=== PATIENT | female | born 1960 | race Hispanic/Latino ===

== ENCOUNTER 2021-04-14 07:10 | Inpatient (IN) | payer BC, OTHER ==
[~2021-04-14] VITALS: Ht 167.6 cm; Wt 100.9 kg
[2021-04-14 07:48] LABS: BASOPHILS % (AUTO) 0.6 % (0.0-5.0); EOSINOPHILS % (AUTO) 0.2 % (0.0-8.0); HEMATOCRIT 35.6 % (36-48); LYMPHOCYTES % (AUTO) 17.9 % (21.0-51.0); MEAN CORPUSCULAR HGB CONC 34.8 g/dL (32.0-36.0); MONOCYTES % (AUTO) 6.7 % (3.0-13.0); NEUTROPHILS % (AUTO) 74.1 % (40.0-77.0); PLATELET COUNT (AUTO) 103 K/uL (130-400); RED CELL DISTRIBUTION WIDTH 13.6 % (11.0-15.5); WHITE BLOOD COUNT (AUTO) 8.6 K/uL (4.8-10.8)
[2021-04-14] MEDS ORDERED: ONDANSETRON 4MG INJ ONE (07:53)
[2021-04-14] MEDS ORDERED: PANTOPRAZOLE 40 MG/VIAL ONE (07:53)
[2021-04-14] MEDS ORDERED: MORPHINE 2 MG SYG ONE (07:53)
[2021-04-14] MEDS ORDERED: ONDANSETRON 4MG INJ IVP ONE (08:00)
[2021-04-14] MEDS ORDERED: MORPHINE 2 MG SYG IVP ONE (08:00)
[2021-04-14] MEDS ORDERED: PANTOPRAZOLE 40 MG/VIAL IVP ONE (08:00)
[2021-04-14] MEDS ORDERED: OCTREOTIDE ACETATE 100 MCG/ML AMP IV SCH (08:00)
[2021-04-14 08:02] LABS: INR 1.11 (0.85-1.15)
[2021-04-14 08:03] LABS: PARTIAL THROMBOPLASTIN TIME 25.1 SEC (26.3-35.5)
[2021-04-14 08:29] LABS: ALBUMIN 2.5 g/dL (3.5-5.0); BILIRUBIN,TOTAL 0.5 mg/dL (0.2-1.0); CREATININE 0.9 mg/dL (0.5-1.5); POTASSIUM 4.6 mmol/L (3.5-5.1); TOTAL PROTEIN, SERUM 6.4 g/dL (6.0-8.3)
[2021-04-14] MEDS ORDERED: CEFTRIAXONE 1G VIAL IVP SCH (09:00)
[2021-04-14] MEDS ORDERED: INSULIN HUMULIN R 100 UNIT/ML 3ML IV SCH (09:00)
[2021-04-14] MEDS ORDERED: CEFTRIAXONE 1G VIAL ONE (09:03)
[2021-04-14] MEDS: CEFTRIAXONE 1G VIAL IV SCH (09:56)
[2021-04-14] MEDS ORDERED: LACTULOSE 20 GM/30 ML UDCUP PO PRN (10:00)
[2021-04-14] MEDS: 0.9%NACL 1000ML 1,000 ML IV SCH ×2 (10:01→16:54)
[2021-04-14 10:54] LABS: APPEARANCE,URINE Clear (CLEAR); BILIRUBIN,URINE Negative (NEGATIVE); COLOR,URINE Yellow (YELLOW); GLUCOSE, URINE (UA) >=1000 mg/dL (NEGATIVE); KETONES,URINE Trace mg/dL (NEGATIVE); LEUKOCYTE ESTERASE ,URINE Negative (NEGATIVE); NITRATE,URINE Negative (NEGATIVE); OCCULT BLOOD,URINE Negative (NEGATIVE); PROTEIN,URINE POS 1+ mg/dL (NEGATIVE)
[2021-04-14 11:06] LABS: RBC,URINE None Seen /HPF (0-1); WBC,URINE 0-1 /HPF (0-1)
[2021-04-14 11:07] LABS: BACTERIA,URINE Moderate /HPF (None Seen); HYALINE CASTS, URINE 0-1 /LPF (0-1 /LPF)
[2021-04-14] MEDS: OCTREOTIDE ACETATE 1,250 MCG in 0.9% NACL 250ML 250 ML IV SCH (12:22)
[2021-04-14] MEDS: INSULIN HUMULIN R 100 UNIT/ML 3ML SQ SCH ×2 (12:23→18:51)
[2021-04-14 13:18] LABS: HEMATOCRIT 32.8 % (36-48)
[2021-04-14 13:37] VITALS: BP 112/46
[2021-04-14 16:18] VITALS: BP 112/61
[2021-04-14] MEDS: ONDANSETRON 4MG INJ IVP PRN ×2 (16:28→22:34)
[2021-04-14 18:58] LABS: HEMATOCRIT 34.6 % (36-48)
[2021-04-14] MEDS ORDERED: PANTOPRAZOLE 40MG INJ 80 MG in 0.9%NACL 100ML 100 ML IV SCH (19:37)
[2021-04-14 19:43] VITALS: BP 117/49
[2021-04-15] VITALS (18 sets, daily range): BP systolic 93–127; BP diastolic 40–56
[2021-04-15] MEDS: INSULIN HUMULIN R 100 UNIT/ML 3ML SQ SCH ×5 (05:46→22:00)
[2021-04-15] MEDS ORDERED: PROPOFOL 10 MG/ML 20ML VIAL IV ONE (07:59)
[2021-04-15] MEDS ORDERED: EPHEDRINE SULFATE 50 MG/ML AMPULE ONE (08:07)
[2021-04-15] MEDS ORDERED: COMPOUND IV MISC 1 EACH IVSOLN MISC PRN (08:30)
[2021-04-15] MEDS ORDERED: PANTOPRAZOLE 40MG INJ 80 MG in 0.9%NACL 100ML 100 ML IV SCH (09:00)
[2021-04-15] MEDS: CEFTRIAXONE 1G VIAL IV SCH (09:52)
[2021-04-15] MEDS ORDERED: DOCUSATE SODIUM 100 MG CAP PO SCH (14:30)
[2021-04-15] MEDS: 0.9%NACL 1000ML 1,000 ML IV SCH (18:35)
[2021-04-15] MEDS: DOCUSATE SODIUM 100 MG CAP PO SCH (21:56)
[2021-04-16 00:05] VITALS: BP 125/35
[2021-04-16 04:19] VITALS: BP 109/44
[2021-04-16 04:40] LABS: BASOPHILS % (AUTO) 0.8 % (0.0-5.0); EOSINOPHILS % (AUTO) 1.3 % (0.0-8.0); HEMATOCRIT 28.9 % (36-48); LYMPHOCYTES % (AUTO) 28.9 % (21.0-51.0); MEAN CORPUSCULAR HEMOGLOBIN 30.9 pg (27.0-33.0); MEAN CORPUSCULAR HGB CONC 33.6 g/dL (32.0-36.0); MONOCYTES % (AUTO) 6.2 % (3.0-13.0); NEUTROPHILS % (AUTO) 62.4 % (40.0-77.0); PLATELET COUNT (AUTO) 86 K/uL (130-400); RED BLOOD CELL COUNT(AUTO) 3.14 MIL/uL (4.00-5.50); RED CELL DISTRIBUTION WIDTH 14.2 % (11.0-15.5); WHITE BLOOD COUNT (AUTO) 7.6 K/uL (4.8-10.8)
[2021-04-16 04:51] LABS: CREATININE 0.9 mg/dL (0.5-1.5); MAGNESIUM 1.6 mg/dL (1.80-2.40); POTASSIUM 3.9 mmol/L (3.5-5.1)
[2021-04-16] MEDS: INSULIN HUMULIN R 100 UNIT/ML 3ML SQ SCH ×4 (05:44→21:35)
[2021-04-16 08:00] VITALS: BP 111/46
[2021-04-16] MEDS: DOCUSATE SODIUM 100 MG CAP PO SCH ×2 (09:29→21:43)
[2021-04-16] MEDS: CEFTRIAXONE 1G VIAL IV SCH (09:29)
[2021-04-16] MEDS: 0.9%NACL 1000ML 1,000 ML IV SCH (09:29)
[2021-04-16 11:52] VITALS: BP 115/34
[2021-04-16 16:00] VITALS: BP 120/47
[2021-04-16 20:00] VITALS: BP 146/59
[2021-04-16] MEDS: PANTOPRAZOLE 40 MG TAB DR PO SCH (21:43)
[2021-04-17] VITALS: BP 114/42
[2021-04-17] MEDS: OCTREOTIDE ACETATE 1,250 MCG in 0.9% NACL 250ML 250 ML IV SCH (02:50)
[2021-04-17 04:00] VITALS: BP 112/53
[2021-04-17] MEDS: INSULIN HUMULIN R 100 UNIT/ML 3ML SQ SCH ×4 (06:49→21:28)
[2021-04-17 08:00] VITALS: BP 126/61
[2021-04-17] MEDS: PANTOPRAZOLE 40 MG TAB DR PO SCH ×2 (10:56→21:06)
[2021-04-17] MEDS: DOCUSATE SODIUM 100 MG CAP PO SCH ×2 (10:56→21:06)
[2021-04-17] MEDS: CEFTRIAXONE 1G VIAL IV SCH (10:56)
[2021-04-17 12:05] VITALS: BP 124/61
[2021-04-17 16:00] VITALS: BP 119/51
[2021-04-17] MEDS ORDERED: METF-446 PO (19:47)
[2021-04-17] MEDS ORDERED: INSU3INS10 SQ (19:47)
[2021-04-17] MEDS ORDERED: GLIP10TA9 PO (19:47)
[2021-04-18 00:20] VITALS: BP 135/64
[2021-04-18 03:52] VITALS: BP 123/63
[2021-04-18 04:15] LABS: HEMATOCRIT 27.2 % (36-48); MEAN CORPUSCULAR HEMOGLOBIN 31.7 pg (27.0-33.0); MEAN CORPUSCULAR HGB CONC 34.9 g/dL (32.0-36.0); MEAN CORPUSCULAR VOLUME 90.7 fL (79-99); RED CELL DISTRIBUTION WIDTH 13.9 % (11.0-15.5); WHITE BLOOD COUNT (AUTO) 6.4 K/uL (4.8-10.8)
[2021-04-18 04:32] LABS: CREATININE 0.8 mg/dL (0.5-1.5); POTASSIUM 3.5 mmol/L (3.5-5.1)
[2021-04-18] MEDS: INSULIN HUMULIN R 100 UNIT/ML 3ML SQ SCH ×2 (06:42→11:39)
[2021-04-18 07:54] VITALS: BP 143/58
[2021-04-18] MEDS: CEFTRIAXONE 1G VIAL IV SCH (08:11)
[2021-04-18] MEDS: DOCUSATE SODIUM 100 MG CAP PO SCH (08:46)
[2021-04-18] MEDS: PANTOPRAZOLE 40 MG TAB DR PO SCH (08:47)
[2021-04-18 11:14] VITALS: BP 127/52
[2021-04-18] MEDS ORDERED: EMPA25TA PO (14:14)
[2021-04-18] MEDS ORDERED: PANT40TA PO (14:14)
== END 2021-04-18 14:45 | disposition home or self-care (01) | DRG 378 ==
LOC: EDH 07:10 → EDHIP 09:31 → OBSVTOIN 09:31 → 4BH 13:22
PROVIDERS: ADMIT Internal Medicine; ATTEND Internal Medicine
PROC: 0DJ08ZZ Inspection of Upper Intestinal Tract, Via Natural or Artificial Opening Endoscopic (ICD-10-PCS; principal; 2021-04-15)
DX: K25.4 Chronic or unspecified gastric ulcer with hemorrhage (principal); D62 Acute posthemorrhagic anemia; K76.6 Portal hypertension; E11.9 Type 2 diabetes mellitus without complications; K74.60 Unspecified cirrhosis of liver; D69.6 Thrombocytopenia, unspecified; I86.4 Gastric varices; K31.89 Other diseases of stomach and duodenum; I10 Essential (primary) hypertension; Z88.5 Allergy status to narcotic agent; Z86.16 Personal history of COVID-19; Z98.41 Cataract extraction status, right eye; Z90.710 Acquired absence of both cervix and uterus; Z90.49 Acquired absence of other specified parts of digestive tract
CPT/HCPCS: 36415; 43235; 80048; 80053; 81001; 82550; 82948; 83735; 83874; 84484; 85014; 85018; 85025; 85027; 85610; 85730; 86850; 86900; 86901; 86923; 87088; 99291; A4606; C9113; G0378; J0696; J1815; J2354; J2405; J2704; J3490; J7030; J7050